=== PATIENT | female | born 1990 | race Caucasian/White ===

== ENCOUNTER 2018-09-12 14:56 | Emergency (ER) | payer OTHER, SELFPAY ==
[2018-09-12 15:30] LABS: #Basophils 0.1 thou/uL (0.0-0.2); #Eosinphils 0.3 thou/uL (0.0-0.7); #Lymphocytes 2.9 thou/uL (1.20-3.40); #Monocytes 0.6 thou/uL (0.11-0.59); #Neutrophils 4.7 thou/uL (1.40-6.50); %Basophils 0.8 % (0.0-1.0); %Lymphocytes 33.9 % (21.0-51.0); %Monocytes 7.1 % (0.0-10.0); %Neutrophils 55.2 % (42.0-75.0); Hemoglobin 14.2 g/dL (12.0-16.0); Mean Corpuscular HGB CONC 32.6 g/dL (32.0-36.0); Mean Corpuscular Hemoglobin 29.7 pg (27.0-31.0); Mean Corpuscular Volume 91.1 fL (78.0-98.0); Mean Platelet Volume 8.4 fL (7.4-10.4); Platelet Count 264 thou/uL (130-400); RBC Distribution Width 11.4 % (11.5-14.5); Red Blood Cell (RBC) Count 4.78 mill/uL (4.20-5.40); White Blood Cell (WBC) Count 8.6 thou/uL (4.8-10.8)
[2018-09-12 15:50] LABS: ALT (SGPT) 73 U/L (8-55); AST (SGOT) 42 U/L (5-34); Albumin 4.5 g/dL (3.5-5.0); Alkaline Phosphatase 93 U/L (40-150); Anion Gap 17 mmol/L (10-20); BUN (Urea Nitrogen) 14 mg/dL (7.0-18.7); Bilirubin, Total 0.5 mg/dL (0.2-1.2); Calc. Creatinine Clearance 0 mL/min (70-130); Calcium 9.7 mg/dL (7.8-10.44); Carbon Dioxide 20 mmol/L (22-29); Chloride 103 mmol/L (98-107); Estimated GFR-MDRD 83; Glucose 106 mg/dL (70-105); Lipase 6 U/L (8-78); Potassium 3.8 mmol/L (3.5-5.1); Protein, Total 7.5 g/dL (6.0-8.3); Sodium 136 mmol/L (136-145)
[2018-09-12] MEDS ORDERED: Morphine 4 MG/ML VIAL ONE ×2 (16:07→20:12)
[2018-09-12] MEDS ORDERED: Ondansetron PF 4 MG/2 ML Vial ONE (16:07)
[2018-09-12] MEDS ORDERED: Ketorolac Tromethamine 30 MG/ML VIAL ONE (16:07)
[2018-09-12 16:51] LABS: BHCG - Serum Negative (NEGATIVE); Pregs Control Background? CLEAR/WHITE (CLR/WHITE); Pregs Control Bar Appear? YES (CONTROL BAR)
[2018-09-12 17:31] LABS: Bacteria/HPF None Seen HPF (None Seen); Bilirubin Small (Negative); Blood, Urine Moderate (Negative); Clarity CLEAR (Clear); Glucose, Urine (Dipstick) Negative (Negative); Hyaline Casts/LPF 0-3 HYALINE CAST LPF (0-3 Hyaline); Leukocyte Negative (Negative); Nitrite Negative (Negative); Pathc Cast-AUWi Flag 0.72 (0-2.49); Protein, Urine (Dipstick) Trace mg/dL (Neg-Trace); RBC/HPF 21-50 HPF (0-3); Specific Gravity, Urine 1.028 (1.002-1.036); Squamous Epithelial None Seen HPF (0-3); Urobilinogen 0.2 mg/dL (0.2-1.0)
[2018-09-12 17:32] LABS: Pregnancy Test - Urine (BHCG) Negative (Negative); Pregu Control Background? CLEAR/WHITE (CLR/WHITE); Pregu Control Bar Appear? YES (CONTROL BAR); Specific Gravity 1.028 (1.002-1.036)
--- NOTE | 2018-09-12 18:43 | CT ---
CT ABDOMEN AND PELVIS: 09/12/2018 HISTORY: Sudden onset of lower abdominal pain. COMPARISON: 12/26/2016 TECHNIQUE: Axial CT imaging obtained at 5 mm intervals, from the lung bases through the pubic symphysis, without contrast. Coronal reformatted imaging obtained. FINDINGS: The lack of contrast limits assessment of the viscera, bowel, and vascular structures, and for lympha denopathy. The imaged lung bases appear unremarkable. No free intraperitoneal air or fluid. IUD in place. Diffuse hepatic hypodensity noted, evidence of steatosis. The spleen, gallbladder, pancreas , and adrenal glands demonstrate no acute findings. There are a few scattered punctate renal calculi bilaterally, right more numerous than left. There i s no evidence for obstructive uropathy on either side. The urinary bladder is decompressed and, thus , not well assessed. There is lobulated hypodensity in the left hemipelvis, suggesting low density left adnexal/ovarian le sions, measuring up to 3 cm. Limited assessment of the bowel demonstrates no evidence for obstruction or inflammatory change. The appendix is unremarkable. Review of the osseous structures demonstrates no worrisome lytic or blastic bone lesion. IMPRESSION: Hypodense lesions are noted within the left hemipelvis, suggesting left ovarian/adnexal hypodense les ions, measuring up to 3 cm. Findings suggest ovarian cysts. This could be better assessed via ultra sound, if clinically warranted. POS: [facility]
--- NOTE | 2018-09-12 19:17 | ULT ---
PELVIC ULTRASOUND: 09/12/2018 HISTORY: Pelvic pain. Assess for torsion. COMPARISON: None. TECHNIQUE: Multiplanar reglaado-scale sonographic imaging of the pelvis obtained with transabdominal and endovaginal imaging. Ovaries are assessed with color-flow and spectral analysis. FINDINGS: The uterus measures 9.1 x 4.3 x 5.8 cm. There is an IUD within the uterus, obscuring the endometrium . The right ovary measures 3.1 x 2.3 x 2 cm, and the left ovary measures 4.5 x 2.7 x 4 cm. The ovar ies demonstrate normal blood flow without evidence for torsion. No free fluid is seen in the pelvis. There are multiple cysts associated with the left ovary, the largest measuring 2.9 cm. IMPRESSION: 1. Left ovarian cysts, measuring up to 2.9 cm. 2. Blood flow is documented within both ovaries. 3. No free fluid is seen within the pelvis. POS: [facility]
[2018-09-14 02:54] LABS: Chlamydia by PCR Not Detected (NotDetected); GC by PCR Not Detected (NotDetected)
== END 2018-09-12 20:11 | disposition home or self-care (01) ==
LOC: ERS 14:56
DX: N83.202 Unspecified ovarian cyst, left side (principal); N76.0 Acute vaginitis; F17.210 Nicotine dependence, cigarettes, uncomplicated
CPT/HCPCS: 36415; 74176; 76856; 80053; 81003; 81015; 81025; 83690; 84703; 85025; 87480; 87491; 87510; 87591; 87660; 96361; 96374; 96375; 96376; J1885; J2270; J2405